=== PATIENT | female | born 1990 | race Hispanic/Latino ===

== ENCOUNTER 2017-08-14 14:29 | Inpatient (IN) | payer OTHER ==
[~2017-08-14] VITALS: Ht 157.5 cm; Wt 89.9 kg
[~2017-08-14 14:29] MED LIST: BUSP15 PO; DICY10 PO; FERR-52 PO; MAGN400C PO; PNV91TAB3 PO; PREN1TAB89 PO; PROM25 PO; TRAM50TA2 PO; TRAZ-147 PO
[2017-08-14] MEDS ORDERED: ONDANSETRON HCL 4 MG/2 ML VIAL ONE ×2 (15:03→23:57)
[2017-08-14 15:04] LABS: BASOPHILS % (AUTO) 1.1 % (0.0-5.0); EOSINOPHILS % (AUTO) 0.2 % (0.0-8.0); HEMATOCRIT 31.7 % (36-48); LYMPHOCYTES % (AUTO) 16.3 % (21.0-51.0); MEAN CORPUSCULAR HEMOGLOBIN 38.4 pg (27.0-33.0); MEAN CORPUSCULAR VOLUME 112.9 fL (79-99); MONOCYTES % (AUTO) 4.4 % (3.0-13.0); NUCLEATED RED BLOOD CELLS 0.1 % (0.0-0.19); PLATELET COUNT (AUTO) 137 K/uL (130-400); RED BLOOD CELL COUNT(AUTO) 2.81 MIL/uL (4.00-5.50); WHITE BLOOD COUNT (AUTO) 11.8 K/uL (4.8-10.8)
[2017-08-14] MEDS ORDERED: SODIUM CHLORIDE 0.9% 1000ML 1,000 ML IV ONE ×2 (15:04→22:17)
[2017-08-14] MEDS ORDERED: DICYCLOMINE HCL 10 MG/ML 2ML AMP IM ONE (15:04)
[2017-08-14] MEDS ORDERED: FAMOTIDINE/PF 20 MG/2 ML VIAL IV ONE (15:05)
[2017-08-14 15:18] LABS: INR 1.35 (0.85-1.15); PARTIAL THROMBOPLASTIN TIME 34.7 SEC (26.3-35.5); PROTHROMBIN TIME 14.1 SEC (9.6-11.6)
[2017-08-14 15:46] LABS: CREATININE 0.5 mg/dL (0.5-1.5); POTASSIUM 3.4 mmol/L (3.5-5.1)
[2017-08-14 15:53] LABS: ALBUMIN 1.8 g/dL (3.5-5.0); BILIRUBIN,TOTAL 7.6 mg/dL (0.2-1.0); TOTAL PROTEIN, SERUM 8.1 g/dL (6.0-8.3)
[2017-08-14] MEDS ORDERED: MORPHINE SULFATE 4 MG/1ML SYG ONE ×2 (16:40→20:55)
[2017-08-14 16:47] LABS: APPEARANCE,URINE SL CLOUDY (CLEAR); BILIRUBIN,URINE LARGE (NEGATIVE); COLOR,URINE ORANGE (YELLOW); GLUCOSE, URINE (UA) NEGATIVE (NEGATIVE); KETONES,URINE 15 mg/dL (NEGATIVE); LEUKOCYTE ESTERASE ,URINE NEGATIVE (NEGATIVE); NITRATE,URINE NEGATIVE (NEGATIVE); OCCULT BLOOD,URINE LARGE (NEGATIVE); PROTEIN,URINE 100 (NEGATIVE); UROBILINOGEN,URINE >=8.0 mg/dL (0.2-1.0)
[2017-08-14] MEDS ORDERED: IOPAMIDOL-370 75 ML VIAL IV ONE (16:48)
[2017-08-14 16:50] LABS: HCG,QUAL RESULT NEGATIVE (NEGATIVE)
[2017-08-14 16:56] LABS: AMPHET/METH SCREEN,URINE NEGATIVE (NEGATIVE); BARBITURATE SCREEN, URINE NEGATIVE (NEGATIVE); BENZODIAZEPINES SCREEN,URINE NEGATIVE (NEGATIVE); CANNABINOID SCREEN,URINE POSITIVE (NEGATIVE); COCAINE SCREEN,URINE NEGATIVE (NEGATIVE); OPIATE SCREEN,URINE NEGATIVE (NEGATIVE); PHENCYCLIDINE SCREEN,URINE NEGATIVE (NEGATIVE)
[2017-08-14 17:05] LABS: BACTERIA,URINE Few /HPF (None Seen); WBC,URINE 0-1 /HPF (0-1)
[2017-08-14 17:06] LABS: SQUAMOUS EPITHELIAL CELL,UR Few /LPF (0-2)
[2017-08-14 17:07] LABS: MUCUS,URINE Moderate LPF (None Seen)
[2017-08-14] MEDS ORDERED: CEFTRIAXONE SODIUM 2 GM VIAL IVP SCH (20:00)
[2017-08-14] MEDS ORDERED: WATER FOR INJECTION,STERILE 20 ML VIAL IJ SCH (20:00)
[2017-08-14] MEDS: SODIUM CHLORIDE 0.9% 1000ML 1,000 ML IV SCH ×2 (20:30→23:14)
[2017-08-14] MEDS ORDERED: WATER FOR INJECTION,STERILE 20 ML VIAL ONE (20:55)
[2017-08-14] MEDS: CEFEPIME HCL 2 GM VIAL IVP SCH (21:00)
[2017-08-14] MEDS: WATER FOR INJECTION,STERILE 20 ML VIAL IJ SCH (21:00)
[2017-08-14] MEDS ORDERED: MORPHINE SULFATE 2 MG/ML 1ML SYG IV PRN (23:15)
[2017-08-14] MEDS ORDERED: ACETAMINOPHEN 325 MG TAB PO PRN (23:15)
[2017-08-14] MEDS ORDERED: HYDRALAZINE HCL 20 MG/ML VIAL IV PRN (23:15)
[2017-08-15] VITALS (7 sets, daily range): BP systolic 90–136; BP diastolic 54–87
[2017-08-15] MEDS ORDERED: MORPHINE SULFATE 4 MG/1ML SYG ONE ×5 (01:35→23:51)
[2017-08-15] MEDS: SODIUM CHLORIDE 0.9% 1000ML 1,000 ML IV SCH ×5 (02:49→23:14)
[2017-08-15 04:28] LABS: BASOPHILS % (AUTO) 2.2 % (0.0-5.0); EOSINOPHILS % (AUTO) 0.3 % (0.0-8.0); HEMATOCRIT 24.5 % (36-48); LYMPHOCYTES % (AUTO) 14.1 % (21.0-51.0); MEAN CORPUSCULAR HEMOGLOBIN 39.7 pg (27.0-33.0); MEAN CORPUSCULAR HGB CONC 35.3 g/dL (32.0-36.0); MEAN CORPUSCULAR VOLUME 112.4 fL (79-99); NEUTROPHILS % (AUTO) 77.4 % (40.0-77.0); PLATELET COUNT (AUTO) 104 K/uL (130-400); RED BLOOD CELL COUNT(AUTO) 2.18 MIL/uL (4.00-5.50); RED CELL DISTRIBUTION WIDTH 23.1 % (11.0-15.5); WHITE BLOOD COUNT (AUTO) 8.2 K/uL (4.8-10.8)
[2017-08-15 04:54] LABS: ALBUMIN 1.7 g/dL (3.5-5.0); BILIRUBIN,TOTAL 7.7 mg/dL (0.2-1.0); CREATININE 0.5 mg/dL (0.5-1.5); POTASSIUM 3.8 mmol/L (3.5-5.1); TOTAL PROTEIN, SERUM 7.9 g/dL (6.0-8.3)
[2017-08-15] MEDS: ONDANSETRON HCL 4 MG/2 ML VIAL IV PRN ×4 (06:08→23:54)
[2017-08-15] MEDS: WATER FOR INJECTION,STERILE 20 ML VIAL IJ SCH ×2 (09:00→20:47)
[2017-08-15] MEDS: CEFEPIME HCL 2 GM VIAL IVP SCH ×2 (10:53→20:47)
[2017-08-15] MEDS: LACTULOSE 20 GM/30 ML UDCUP PO SCH ×2 (10:53→20:47)
[2017-08-15] MEDS: THIAMINE HCL 100 MG/ML 2ML VIAL IM SCH (10:54)
[2017-08-15] MEDS: FAMOTIDINE/PF 20 MG/2 ML VIAL IV SCH ×2 (10:54→20:47)
[2017-08-15] MEDS ORDERED: THIAMINE HCL 100 MG/ML 2ML VIAL IVP SCH (22:15)
[2017-08-15] MEDS: LORAZEPAM 1 MG TABLET PO SCH (23:54)
[2017-08-16] VITALS (15 sets, daily range): BP systolic 103–126; BP diastolic 52–86
[2017-08-16] MEDS: SODIUM CHLORIDE 0.9% 1000ML 1,000 ML IV SCH ×5 (02:30→15:30)
[2017-08-16] MEDS ORDERED: MORPHINE SULFATE 4 MG/1ML SYG ONE ×4 (04:08→20:25)
[2017-08-16] MEDS: ONDANSETRON HCL 4 MG/2 ML VIAL IV PRN ×4 (04:11→22:18)
[2017-08-16 06:00] LABS: HEMATOCRIT 22.7 % (36-48); MEAN CORPUSCULAR HEMOGLOBIN 40.9 pg (27.0-33.0); MEAN CORPUSCULAR HGB CONC 36.1 g/dL (32.0-36.0); MEAN CORPUSCULAR VOLUME 113.3 fL (79-99); NUCLEATED RED BLOOD CELLS 0.2 % (0.0-0.19); PLATELET COUNT (AUTO) 76 K/uL (130-400); RED CELL DISTRIBUTION WIDTH 22.9 % (11.0-15.5); WHITE BLOOD COUNT (AUTO) 5.9 K/uL (4.8-10.8)
[2017-08-16] MEDS: LORAZEPAM 1 MG TABLET PO SCH ×2 (06:07→12:00)
[2017-08-16 06:11] LABS: ALBUMIN 1.6 g/dL (3.5-5.0); BILIRUBIN,TOTAL 7.9 mg/dL (0.2-1.0); CREATININE 0.7 mg/dL (0.5-1.5); POTASSIUM 3.1 mmol/L (3.5-5.1); TOTAL PROTEIN, SERUM 7.4 g/dL (6.0-8.3)
[2017-08-16 06:19] LABS: INR 1.51 (0.85-1.15); PARTIAL THROMBOPLASTIN TIME 38.6 SEC (26.3-35.5); PROTHROMBIN TIME 15.7 SEC (9.6-11.6)
[2017-08-16] MEDS ORDERED: PROPOFOL 1000 MG/100 ML 100 ML IV ONE (07:05)
[2017-08-16] MEDS ORDERED: LIDOCAINE HCL 1% 20 ML VIAL ONE (07:05)
[2017-08-16] MEDS ORDERED: MIDAZOLAM HCL 1 MG/ML 2ML VIAL ONE (07:07)
[2017-08-16] MEDS ORDERED: ONDANSETRON HCL 4 MG/2 ML VIAL ONE (07:41)
[2017-08-16] MEDS: THIAMINE HCL 100 MG TABLET PO SCH (09:00)
[2017-08-16] MEDS: WATER FOR INJECTION,STERILE 20 ML VIAL IJ SCH ×2 (09:00→20:29)
[2017-08-16] MEDS: LACTULOSE 20 GM/30 ML UDCUP PO SCH ×2 (10:09→20:29)
[2017-08-16] MEDS: FAMOTIDINE/PF 20 MG/2 ML VIAL IV SCH (10:14)
[2017-08-16] MEDS: THIAMINE HCL 100 MG/ML 2ML VIAL IM SCH (10:18)
[2017-08-16] MEDS: CEFEPIME HCL 2 GM VIAL IVP SCH ×2 (10:19→20:29)
[2017-08-17 00:34] VITALS: BP 91/60
[2017-08-17 04:00] VITALS: BP 97/63
[2017-08-17] MEDS: SODIUM CHLORIDE 0.9% 1000ML 1,000 ML IV SCH ×4 (04:30→15:14)
[2017-08-17 05:44] VITALS: BP 101/69
[2017-08-17] MEDS: LORAZEPAM 1 MG TABLET PO SCH ×3 (06:00→12:03)
[2017-08-17] MEDS ORDERED: MORPHINE SULFATE 4 MG/1ML SYG ONE (06:02)
[2017-08-17] MEDS: ONDANSETRON HCL 4 MG/2 ML VIAL IV PRN (06:18)
[2017-08-17 07:30] VITALS: BP 97/58
[2017-08-17] MEDS ORDERED: PANTOPRAZOLE SODIUM 40 MG TABLET.DR PO SCH (07:30)
[2017-08-17] MEDS: LACTULOSE 20 GM/30 ML UDCUP PO SCH (09:00)
[2017-08-17] MEDS: LIDOCAINE HCL 2% VISCOUS 15 ML UDCUP PO SCH ×2 (09:00→15:00)
[2017-08-17] MEDS: THIAMINE HCL 100 MG/ML 2ML VIAL IM SCH (09:00)
[2017-08-17] MEDS: CEFEPIME HCL 2 GM VIAL IVP SCH (09:00)
[2017-08-17] MEDS: WATER FOR INJECTION,STERILE 20 ML VIAL IJ SCH (09:01)
[2017-08-17] MEDS: THIAMINE HCL 100 MG TABLET PO SCH (09:01)
[2017-08-17] MEDS ORDERED: MORPHINE SULFATE 4 MG/1ML SYG IV PRN (11:50)
[2017-08-17 12:00] VITALS: BP 97/64
[2017-08-17] MEDS ORDERED: PANT40TA25 PO (14:50)
[2017-08-18] MEDS ORDERED: LIDOCAINE HCL 2% VISCOUS 15 ML UDCUP PO PRN (21:00)
== END 2017-08-17 17:25 | disposition home or self-care (01) | DRG 441 ==
LOC: EDH 14:29 → EDHIP 14:30 → 3AH 08-15 02:10
PROVIDERS: ADMIT Family Medicine; ATTEND Family Medicine
PROC: 06L38CZ Occlusion of Esophageal Vein with Extraluminal Device, Via Natural or Artificial Opening Endoscopic (ICD-10-PCS; principal; 2017-08-16)
DX: K75.9 Inflammatory liver disease, unspecified (principal); I85.01 Esophageal varices with bleeding; K92.0 Hematemesis; D68.9 Coagulation defect, unspecified; E72.20 Disorder of urea cycle metabolism, unspecified; D69.6 Thrombocytopenia, unspecified; K76.6 Portal hypertension; R18.8 Other ascites; R16.0 Hepatomegaly, not elsewhere classified; R16.1 Splenomegaly, not elsewhere classified; K29.20 Alcoholic gastritis without bleeding; K31.89 Other diseases of stomach and duodenum; R74.0 Nonspecific elevation of levels of transaminase and lactic acid dehydrogenase [LDH]; E87.6 Hypokalemia; G40.909 Epilepsy, unspecified, not intractable, without status epilepticus; F10.10 Alcohol abuse, uncomplicated; F12.10 Cannabis abuse, uncomplicated; Z91.19 Patient's noncompliance with other medical treatment and regimen; E66.9 Obesity, unspecified; I86.4 Gastric varices; K27.9 Peptic ulcer, site unspecified, unspecified as acute or chronic, without hemorrhage or perforation; K74.60 Unspecified cirrhosis of liver; Z72.0 Tobacco use; Z88.0 Allergy status to penicillin; Z68.36 Body mass index [BMI] 36.0-36.9, adult; Z82.49 Family history of ischemic heart disease and other diseases of the circulatory system; Z83.3 Family history of diabetes mellitus
CPT/HCPCS: 36415; 49083; 74177; 76700; 76705; 80053; 80305; 81001; 81025; 82140; 83690; 85025; 85027; 85610; 85730; 86677; 86850; 86900; 86901; A4218; G0480; J0500; J0692; J2250; J2270; J2405; J2704; J3411; J3490; J7030; Q9967

== ENCOUNTER 2017-08-20 11:40 | Inpatient (IN) | payer OTHER ==
[~2017-08-20] VITALS: Ht 157.5 cm; Wt 89.2 kg
[~2017-08-20 11:40] MED LIST changes: -BUSP15 PO; +PANT40TA25 PO; -PNV91TAB3 PO; -PREN1TAB89 PO
[2017-08-20 12:58] LABS: BASOPHILS % (AUTO) 1.3 % (0.0-5.0); EOSINOPHILS % (AUTO) 0.1 % (0.0-8.0); HEMATOCRIT 27.8 % (36-48); LYMPHOCYTES % (AUTO) 14.2 % (21.0-51.0); MEAN CORPUSCULAR HEMOGLOBIN 41.1 pg (27.0-33.0); MEAN CORPUSCULAR HGB CONC 34.5 g/dL (32.0-36.0); MONOCYTES % (AUTO) 15.2 % (3.0-13.0); NEUTROPHILS % (AUTO) 69.2 % (40.0-77.0); PLATELET COUNT (AUTO) 165 K/uL (130-400); RED BLOOD CELL COUNT(AUTO) 2.34 MIL/uL (4.00-5.50); RED CELL DISTRIBUTION WIDTH 23.4 % (11.0-15.5); WHITE BLOOD COUNT (AUTO) 8.9 K/uL (4.8-10.8)
[2017-08-20 13:22] LABS: ALBUMIN 1.6 g/dL (3.5-5.0); BILIRUBIN,TOTAL 11.3 mg/dL (0.2-1.0); CREATININE 0.6 mg/dL (0.5-1.5); INR 1.87 (0.85-1.15); PARTIAL THROMBOPLASTIN TIME 42.2 SEC (26.3-35.5); PROTHROMBIN TIME 19.4 SEC (9.6-11.6)
[2017-08-20 13:28] LABS: POTASSIUM 2.8 mmol/L (3.5-5.1)
[2017-08-20] MEDS ORDERED: ONDANSETRON HCL 4 MG/2 ML VIAL ONE ×2 (13:50→17:57)
[2017-08-20] MEDS ORDERED: POTASSIUM BICARB/CIT AC 25 MEQ TABLET.EFF ONE (13:50)
[2017-08-20] MEDS ORDERED: MORPHINE SULFATE 4 MG/1ML SYG ONE (13:51)
[2017-08-20] MEDS ORDERED: GUAIFENESIN-DM 200/20 MG 10 ML PO PRN (17:00)
[2017-08-20] MEDS ORDERED: LACTULOSE 20 GM/30 ML UDCUP PO PRN (17:00)
[2017-08-20] MEDS ORDERED: DiphenhydrAMINE HCL 50 MG/ML VIAL IV PRN (17:00)
[2017-08-20] MEDS ORDERED: POTASSIUM CHLORIDE 20MEQ/100ML 100 ML IV PRN (17:00)
[2017-08-20] MEDS ORDERED: HYDRALAZINE HCL 20 MG/ML VIAL IV PRN (17:00)
[2017-08-20] MEDS ORDERED: POTASSIUM CHLORIDE 10% ELIXIR 20 MEQ/15 ML UDCUP PO PRN (17:00)
[2017-08-20] MEDS ORDERED: LIDOCAINE HCL-MPF 1% 2ML VIAL IVP PRN (17:00)
[2017-08-20] MEDS ORDERED: MORPHINE SULFATE 2 MG/ML 1ML SYG ONE ×2 (17:57→23:02)
[2017-08-20] MEDS: IPRATROPIUM/ALBUTEROL SULFATE 3 ML SOLUTION IH SCH (19:44)
[2017-08-20] MEDS: FAMOTIDINE/PF 20 MG/2 ML VIAL IV SCH (21:00)
[2017-08-20] MEDS ORDERED: FAMOTIDINE/PF 20 MG/2 ML VIAL IV ONE (23:03)
[2017-08-21 01:00] VITALS: BP 105/78
[2017-08-21] MEDS: IPRATROPIUM/ALBUTEROL SULFATE 3 ML SOLUTION IH SCH ×5 (01:12→23:58)
[2017-08-21 03:30] VITALS: BP 97/58
[2017-08-21] MEDS: ONDANSETRON HCL 4 MG/2 ML VIAL IV PRN ×2 (06:46→13:21)
[2017-08-21] MEDS: MORPHINE SULFATE 2 MG/ML 1ML SYG IV PRN ×2 (06:47→13:21)
[2017-08-21 07:00] VITALS: BP 112/71
[2017-08-21] MEDS: FAMOTIDINE/PF 20 MG/2 ML VIAL IV SCH ×2 (11:43→21:15)
[2017-08-21] MEDS: THIAMINE HCL 100 MG/ML 2ML VIAL IM SCH (11:43)
[2017-08-21 12:00] VITALS: BP_SYST 101; BP_SYST 122; BP_DIAS 65; BP_DIAS 75
[2017-08-21 16:00] VITALS: BP 102/62
[2017-08-21] MEDS: POTASSIUM CHLORIDE 20 MEQ ERTAB PO PRN ×2 (19:24→21:15)
[2017-08-21 20:00] VITALS: BP 92/62
[2017-08-21] MEDS ORDERED: SODIUM CHLORIDE 0.9% 250 ML IV ONE (20:02)
[2017-08-22] MEDS: POTASSIUM CHLORIDE 20 MEQ ERTAB PO PRN (01:54)
[2017-08-22 04:10] VITALS: BP 95/66
[2017-08-22] MEDS: MORPHINE SULFATE 2 MG/ML 1ML SYG IV PRN (04:12)
[2017-08-22] MEDS: ONDANSETRON HCL 4 MG/2 ML VIAL IV PRN (04:12)
[2017-08-22 04:34] LABS: CREATININE 0.7 mg/dL (0.5-1.5); MAGNESIUM 0.9 mg/dL (1.80-2.40); POTASSIUM 4.1 mmol/L (3.5-5.1)
[2017-08-22] MEDS: IPRATROPIUM/ALBUTEROL SULFATE 3 ML SOLUTION IH SCH ×2 (06:59→10:27)
[2017-08-22 08:00] VITALS: BP 100/70
[2017-08-22] MEDS ORDERED: MAGNESIUM 2GM PREMIX 50ML 50 ML IV SCH (08:00)
[2017-08-22] MEDS: FAMOTIDINE/PF 20 MG/2 ML VIAL IV SCH (08:45)
[2017-08-22] MEDS: THIAMINE HCL 100 MG/ML 2ML VIAL IM SCH (08:45)
[2017-08-22] MEDS ORDERED: THIA100V3 IJ (10:22)
[2017-08-22] MEDS ORDERED: MAGN400T25 PO (10:22)
[2017-08-22 12:00] VITALS: BP 93/59
[2017-08-22] MEDS ORDERED: FLU VACC QS2017-18 36MOS UP/PF 60 MCG/0.5 ML ML IM NR (13:00)
== END 2017-08-22 14:15 | disposition home or self-care (01) | DRG 433 ==
LOC: EDH 11:40 → EDHIP 11:41 → 3AH 23:10
PROVIDERS: ADMIT Family Medicine; ATTEND Family Medicine
PROC: 3E0234Z Introduction of Serum, Toxoid and Vaccine into Muscle, Percutaneous Approach (ICD-10-PCS; 2017-08-20)
PROC: 0W9G3ZZ Drainage of Peritoneal Cavity, Percutaneous Approach (ICD-10-PCS; principal; 2017-08-21)
DX: K74.60 Unspecified cirrhosis of liver (principal); R18.8 Other ascites; E83.42 Hypomagnesemia; K75.9 Inflammatory liver disease, unspecified; R16.0 Hepatomegaly, not elsewhere classified; R16.1 Splenomegaly, not elsewhere classified; E87.6 Hypokalemia; G40.909 Epilepsy, unspecified, not intractable, without status epilepticus; F10.10 Alcohol abuse, uncomplicated; F12.10 Cannabis abuse, uncomplicated; Z91.19 Patient's noncompliance with other medical treatment and regimen; Z72.0 Tobacco use; Z23 Encounter for immunization
CPT/HCPCS: 36415; 49083; 80048; 80053; 82140; 83735; 84132; 85025; 85610; 85730; 94640; 94664; G0008; J1200; J2270; J2405; J3411; J3475; J3480; J3490; J7030; Q2038

== ENCOUNTER 2017-08-26 08:13 | Inpatient (IN) | payer OTHER ==
[~2017-08-26] VITALS: Ht 157.5 cm; Wt 94.1 kg
[~2017-08-26 08:13] MED LIST changes: -MAGN400C PO; +MAGN400T25 PO; +THIA100V3 IJ
[2017-08-26] MEDS ORDERED: DIATR MEGLU/DIATRIZOATE SODIUM 30 ML BOTTLE PO ONE (08:36)
[2017-08-26 09:40] LABS: BASOPHILS % (AUTO) 0.3 % (0.0-5.0); EOSINOPHILS % (AUTO) 0.1 % (0.0-8.0); HEMATOCRIT 24.9 % (36-48); LYMPHOCYTES % (AUTO) 9.6 % (21.0-51.0); MEAN CORPUSCULAR HEMOGLOBIN 41.7 pg (27.0-33.0); MEAN CORPUSCULAR HGB CONC 35.1 g/dL (32.0-36.0); MEAN CORPUSCULAR VOLUME 118.9 fL (79-99); MONOCYTES % (AUTO) 10.9 % (3.0-13.0); NEUTROPHILS % (AUTO) 79.1 % (40.0-77.0); PLATELET COUNT (AUTO) 229 K/uL (130-400); RED CELL DISTRIBUTION WIDTH 20.7 % (11.0-15.5)
[2017-08-26] MEDS ORDERED: MORPHINE SULFATE 4 MG/1ML SYG ONE ×2 (09:43→13:38)
[2017-08-26] MEDS ORDERED: ONDANSETRON HCL 4 MG/2 ML VIAL ONE (09:43)
[2017-08-26 09:49] LABS: CREATININE 0.7 mg/dL (0.5-1.5); POTASSIUM 4.2 mmol/L (3.5-5.1)
[2017-08-26 09:55] LABS: ALBUMIN 1.3 g/dL (3.5-5.0); BILIRUBIN,TOTAL 11.3 mg/dL (0.2-1.0); TOTAL PROTEIN, SERUM 7.1 g/dL (6.0-8.3)
[2017-08-26 10:01] LABS: INR 1.78 (0.85-1.15); PARTIAL THROMBOPLASTIN TIME 51.7 SEC (26.3-35.5); PROTHROMBIN TIME 18.5 SEC (9.6-11.6)
[2017-08-26 10:28] LABS: APPEARANCE,URINE Turbid (CLEAR); BILIRUBIN,URINE Large (NEGATIVE); COLOR,URINE Dark Yellow (YELLOW); GLUCOSE, URINE (UA) TRACE mg/dL (NEGATIVE); KETONES,URINE Negative (NEGATIVE); LEUKOCYTE ESTERASE ,URINE Small (NEGATIVE); NITRATE,URINE Positive (NEGATIVE); OCCULT BLOOD,URINE Nonhemolyzed Trace (NEGATIVE); PH,URINE 5.5 (5.0-8.0); PROTEIN,URINE POS 1+ (NEGATIVE)
[2017-08-26 10:59] LABS: MUCUS,URINE Moderate LPF (None Seen)
[2017-08-26 11:00] LABS: SQUAMOUS EPITHELIAL CELL,UR 0-2 /LPF (0-2)
[2017-08-26 11:02] LABS: BACTERIA,URINE Few /HPF (None Seen); FINE GRANULAR CASTS,URINE 0-2 /LPF (None Seen); RBC,URINE 0-1 /HPF (0-1); WBC,URINE 0-1 /HPF (0-1)
[2017-08-26] MEDS ORDERED: METRONIDAZOLE 500MG/100ML BAG 100 ML ONE (12:41)
[2017-08-26] MEDS ORDERED: CEFTRIAXONE SODIUM 1 GM ONE (12:42)
[2017-08-26] MEDS ORDERED: HYDRALAZINE HCL 20 MG/ML VIAL IV PRN (15:30)
[2017-08-26 16:00] VITALS: BP 114/78
[2017-08-26] MEDS: ONDANSETRON HCL 4 MG/2 ML VIAL IV PRN (18:27)
[2017-08-26] MEDS: MORPHINE SULFATE 2 MG/ML 1ML SYG IV PRN ×2 (18:27→23:18)
[2017-08-26 19:37] VITALS: BP 108/71
[2017-08-26] MEDS: FUROSEMIDE 10 MG/ML 4ML VIAL IVP SCH (20:58)
[2017-08-26] MEDS: FAMOTIDINE 20MG TAB 20 MG TAB PO SCH (20:58)
[2017-08-26] MEDS: LACTULOSE 20 GM/30 ML UDCUP PO PRN (23:17)
[2017-08-26] MEDS: LEVOFLOXACIN 500 MG/D5W 100 ML 100 ML IV SCH (23:18)
[2017-08-26 23:37] VITALS: BP 104/74
[2017-08-27] VITALS (7 sets, daily range): BP systolic 95–117; BP diastolic 57–77
[2017-08-27] MEDS: ACETAMINOPHEN-CODEINE 300/30MG TAB PO PRN (00:26)
[2017-08-27] MEDS ORDERED: PHYTONADIONE 10 MG/1 ML AMP SQ SCH (01:15)
[2017-08-27] MEDS: ONDANSETRON HCL 4 MG/2 ML VIAL IV PRN ×3 (02:46→20:41)
[2017-08-27] MEDS: MORPHINE SULFATE 2 MG/ML 1ML SYG IV PRN ×3 (05:16→20:42)
[2017-08-27 06:04] LABS: BASOPHILS % (AUTO) 1.4 % (0.0-5.0); HEMATOCRIT 27.9 % (36-48); LYMPHOCYTES % (AUTO) 9.2 % (21.0-51.0); MEAN CORPUSCULAR HEMOGLOBIN 41.1 pg (27.0-33.0); MEAN CORPUSCULAR HGB CONC 34.3 g/dL (32.0-36.0); MEAN CORPUSCULAR VOLUME 119.7 fL (79-99); MONOCYTES % (AUTO) 9.7 % (3.0-13.0); NEUTROPHILS % (AUTO) 79.7 % (40.0-77.0); PLATELET COUNT (AUTO) 215 K/uL (130-400); RED BLOOD CELL COUNT(AUTO) 2.33 MIL/uL (4.00-5.50); RED CELL DISTRIBUTION WIDTH 20.1 % (11.0-15.5); WHITE BLOOD COUNT (AUTO) 12.1 K/uL (4.8-10.8)
[2017-08-27 06:12] LABS: INR 1.88 (0.85-1.15); PARTIAL THROMBOPLASTIN TIME 46.2 SEC (26.3-35.5); PROTHROMBIN TIME 19.5 SEC (9.6-11.6)
[2017-08-27 06:17] LABS: ALBUMIN 1.3 g/dL (3.5-5.0); BILIRUBIN,TOTAL 13.1 mg/dL (0.2-1.0); CREATININE 0.8 mg/dL (0.5-1.5); MAGNESIUM 1.4 mg/dL (1.80-2.40); PHOSPHORUS 2.4 mg/dL (2.5-4.9); POTASSIUM 3.3 mmol/L (3.5-5.1); TOTAL PROTEIN, SERUM 7.6 g/dL (6.0-8.3)
[2017-08-27] MEDS: FUROSEMIDE 10 MG/ML 4ML VIAL IVP SCH ×2 (09:58→20:41)
[2017-08-27] MEDS: FAMOTIDINE 20MG TAB 20 MG TAB PO SCH ×2 (09:58→20:41)
[2017-08-27] MEDS: MAGNESIUM 2GM PREMIX 50ML 50 ML IV SCH (16:26)
[2017-08-27] MEDS: POTASSIUM CHLORIDE 10% ELIXIR 20 MEQ/15 ML UDCUP PO PRN ×2 (16:26→18:19)
[2017-08-27] MEDS: LEVOFLOXACIN 500 MG/D5W 100 ML 100 ML IV SCH (20:41)
[2017-08-27] MEDS: LACTULOSE 20 GM/30 ML UDCUP PO PRN (20:54)
[2017-08-27] MEDS: POTASSIUM CHLORIDE 20 MEQ ERTAB PO PRN (20:54)
[2017-08-27] MEDS: DiphenhydrAMINE HCL 50 MG/ML VIAL IV PRN (22:06)
[2017-08-28] MEDS: MORPHINE SULFATE 2 MG/ML 1ML SYG IV PRN ×3 (01:48→12:01)
[2017-08-28] MEDS: ONDANSETRON HCL 4 MG/2 ML VIAL IV PRN ×2 (03:21→12:01)
[2017-08-28 03:58] VITALS: BP 107/70
[2017-08-28] MEDS: FUROSEMIDE 10 MG/ML 4ML VIAL IVP SCH ×2 (08:19→22:00)
[2017-08-28] MEDS: FAMOTIDINE 20MG TAB 20 MG TAB PO SCH ×2 (08:20→22:01)
[2017-08-28 09:59] VITALS: BP 112/50
[2017-08-28 13:28] VITALS: BP 113/71
[2017-08-28 18:32] VITALS: BP 120/69
[2017-08-28 19:00] VITALS: BP 121/72
[2017-08-28] MEDS: LEVOFLOXACIN 500 MG/D5W 100 ML 100 ML IV SCH (22:01)
[2017-08-28] MEDS: LACTULOSE 20 GM/30 ML UDCUP PO SCH (23:19)
[2017-08-29] VITALS (7 sets, daily range): BP systolic 94–116; BP diastolic 57–76
[2017-08-29] MEDS: ACETAMINOPHEN-CODEINE 300/30MG TAB PO PRN ×2 (02:06→08:55)
[2017-08-29 05:07] LABS: BASOPHILS % (AUTO) 1.1 % (0.0-5.0); HEMATOCRIT 22.7 % (36-48); LYMPHOCYTES % (AUTO) 9.8 % (21.0-51.0); MEAN CORPUSCULAR HEMOGLOBIN 41.1 pg (27.0-33.0); MEAN CORPUSCULAR VOLUME 117.3 fL (79-99); NEUTROPHILS % (AUTO) 80.1 % (40.0-77.0); NUCLEATED RED BLOOD CELLS 0.1 % (0.0-0.19); PLATELET COUNT (AUTO) 214 K/uL (130-400); RED BLOOD CELL COUNT(AUTO) 1.94 MIL/uL (4.00-5.50); RED CELL DISTRIBUTION WIDTH 19.3 % (11.0-15.5); WHITE BLOOD COUNT (AUTO) 13.5 K/uL (4.8-10.8)
[2017-08-29 05:54] LABS: POTASSIUM 2.8 mmol/L (3.5-5.1)
[2017-08-29] MEDS: LIDOCAINE HCL-MPF 1% 2ML VIAL IVP PRN ×3 (06:39→23:26)
[2017-08-29] MEDS: POTASSIUM CHLORIDE 10% ELIXIR 20 MEQ/15 ML UDCUP PO PRN ×3 (06:39→22:27)
[2017-08-29] MEDS: POTASSIUM CHLORIDE 20MEQ/100ML 100 ML IV PRN ×3 (06:40→23:26)
[2017-08-29] MEDS: FAMOTIDINE 20MG TAB 20 MG TAB PO SCH ×2 (08:49→21:17)
[2017-08-29] MEDS: FUROSEMIDE 10 MG/ML 4ML VIAL IVP SCH ×2 (08:50→21:16)
[2017-08-29] MEDS ORDERED: TRAMADOL HCL 50 MG TABLET ONE (11:29)
[2017-08-29] MEDS: MORPHINE SULFATE 2 MG/ML 1ML SYG IV PRN (18:44)
[2017-08-29] MEDS: LEVOFLOXACIN 500 MG/D5W 100 ML 100 ML IV SCH (21:17)
[2017-08-29] MEDS: DiphenhydrAMINE HCL 50 MG/ML VIAL IV PRN (22:26)
[2017-08-30] MEDS: MORPHINE SULFATE 2 MG/ML 1ML SYG IV PRN ×4 (00:51→21:41)
[2017-08-30 04:14] VITALS: BP 100/64
[2017-08-30 04:52] LABS: MEAN CORPUSCULAR HEMOGLOBIN 42.3 pg (27.0-33.0); MEAN CORPUSCULAR HGB CONC 35.6 g/dL (32.0-36.0); MEAN CORPUSCULAR VOLUME 118.8 fL (79-99); PLATELET COUNT (AUTO) 198 K/uL (130-400); RED BLOOD CELL COUNT(AUTO) 1.94 MIL/uL (4.00-5.50); WHITE BLOOD COUNT (AUTO) 15.4 K/uL (4.8-10.8)
[2017-08-30 05:09] LABS: CREATININE 1.1 mg/dL (0.5-1.5); MAGNESIUM 0.9 mg/dL (1.80-2.40); POTASSIUM 3.7 mmol/L (3.5-5.1)
[2017-08-30 05:14] LABS: BAND NEUTROPHILS % (MANUAL) 17 % (0-2); LYMPHOCYTES % (MANUAL) 18 % (22-44); MONOCYTES % (MANUAL) 1 % (2-9); SEGMENTED NEUTROPHILS % 64 % (40-70)
[2017-08-30 05:15] LABS: MAN.DIFF COMMENT-IMPRESSION MANUAL DIFFERENTIAL; PLATELET MORPHOLOGY COMMENT ADEQUATE
[2017-08-30] MEDS: MAGNESIUM 2GM PREMIX 50ML 50 ML IV SCH (06:20)
[2017-08-30 08:15] VITALS: BP 97/63
[2017-08-30] MEDS: LACTULOSE 20 GM/30 ML UDCUP PO SCH ×2 (09:32→23:00)
[2017-08-30] MEDS: FAMOTIDINE 20MG TAB 20 MG TAB PO SCH ×2 (09:32→20:29)
[2017-08-30] MEDS: FUROSEMIDE 10 MG/ML 4ML VIAL IVP SCH ×2 (09:32→20:28)
[2017-08-30] MEDS: POTASSIUM CHLORIDE 20 MEQ ERTAB PO PRN (09:39)
[2017-08-30 11:27] VITALS: BP 97/61
[2017-08-30 15:57] VITALS: BP 91/59
[2017-08-30 19:32] VITALS: BP 99/69
[2017-08-30] MEDS: DiphenhydrAMINE HCL 50 MG/ML VIAL IV PRN (19:36)
[2017-08-30] MEDS: LEVOFLOXACIN 500 MG/D5W 100 ML 100 ML IV SCH (20:29)
[2017-08-30 22:10] LABS: APPEARANCE,URINE Cloudy (CLEAR); BILIRUBIN,URINE Large (NEGATIVE); COLOR,URINE Dark Yellow (YELLOW); GLUCOSE, URINE (UA) Negative (NEGATIVE); KETONES,URINE Negative (NEGATIVE); LEUKOCYTE ESTERASE ,URINE Trace (NEGATIVE); NITRATE,URINE Negative (NEGATIVE); OCCULT BLOOD,URINE Negative (NEGATIVE); PROTEIN,URINE Negative (NEGATIVE); UROBILINOGEN,URINE 0.2 mg/dL (0.2-1.0)
[2017-08-30 22:30] LABS: BACTERIA,URINE None Seen /HPF (None Seen); MUCUS,URINE Rare LPF (None Seen); RBC,URINE None Seen /HPF (0-1); SQUAMOUS EPITHELIAL CELL,UR Few /LPF (0-2); WBC,URINE 0-1 /HPF (0-1)
[2017-08-30 23:44] VITALS: BP 97/64
[2017-08-31] VITALS (13 sets, daily range): BP systolic 89–133; BP diastolic 55–72
[2017-08-31] MEDS: ZOLPIDEM TARTRATE 5 MG TAB PO PRN (02:38)
[2017-08-31] MEDS: ONDANSETRON HCL 4 MG/2 ML VIAL IV PRN (06:02)
[2017-08-31] MEDS: MORPHINE SULFATE 2 MG/ML 1ML SYG IV PRN ×2 (06:02→19:58)
[2017-08-31] MEDS: FAMOTIDINE 20MG TAB 20 MG TAB PO SCH ×2 (08:19→19:58)
[2017-08-31] MEDS: FUROSEMIDE 10 MG/ML 4ML VIAL IVP SCH ×2 (08:20→19:58)
[2017-08-31] MEDS: ACETAMINOPHEN-CODEINE 300/30MG TAB PO PRN ×2 (09:31→17:07)
[2017-08-31] MEDS: DiphenhydrAMINE HCL 50 MG/ML VIAL IV PRN (17:07)
[2017-08-31] MEDS: LEVOFLOXACIN 500 MG/D5W 100 ML 100 ML IV SCH (19:58)
[2017-08-31] MEDS: LACTULOSE 20 GM/30 ML UDCUP PO SCH (23:00)
[2017-09-01] VITALS (7 sets, daily range): BP systolic 96–126; BP diastolic 56–64
[2017-09-01] MEDS: MORPHINE SULFATE 2 MG/ML 1ML SYG IV PRN ×3 (02:28→22:53)
[2017-09-01 05:18] LABS: HEMATOCRIT 23.7 % (36-48); MEAN CORPUSCULAR HEMOGLOBIN 43.7 pg (27.0-33.0); MEAN CORPUSCULAR HGB CONC 37.4 g/dL (32.0-36.0); MEAN CORPUSCULAR VOLUME 116.7 fL (79-99); PLATELET COUNT (AUTO) 174 K/uL (130-400); RED BLOOD CELL COUNT(AUTO) 2.03 MIL/uL (4.00-5.50); WHITE BLOOD COUNT (AUTO) 17.7 K/uL (4.8-10.8)
[2017-09-01 05:29] LABS: INR 2.14 (0.85-1.15); PARTIAL THROMBOPLASTIN TIME 65.5 SEC (26.3-35.5); PROTHROMBIN TIME 22.1 SEC (9.6-11.6)
[2017-09-01 05:30] LABS: BILIRUBIN,TOTAL 11.2 mg/dL (0.2-1.0); CREATININE 1.3 mg/dL (0.5-1.5); MAGNESIUM 0.8 mg/dL (1.80-2.40); POTASSIUM 3.2 mmol/L (3.5-5.1); TOTAL PROTEIN, SERUM 6.3 g/dL (6.0-8.3)
[2017-09-01] MEDS: MAGNESIUM 2GM PREMIX 50ML 50 ML IV SCH (05:43)
[2017-09-01] MEDS: ONDANSETRON HCL 4 MG/2 ML VIAL IV PRN ×3 (06:08→22:42)
[2017-09-01] MEDS: DiphenhydrAMINE HCL 50 MG/ML VIAL IV PRN (06:08)
[2017-09-01] MEDS: ACETAMINOPHEN-CODEINE 300/30MG TAB PO PRN (08:47)
[2017-09-01] MEDS: FUROSEMIDE 10 MG/ML 4ML VIAL IVP SCH ×2 (08:47→21:00)
[2017-09-01] MEDS: FAMOTIDINE 20MG TAB 20 MG TAB PO SCH ×2 (08:47→21:43)
[2017-09-01] MEDS ORDERED: CEFTRIAXONE 1GM/D5W 50ML 50 ML IV SCH (09:45)
[2017-09-01] MEDS: CEFTRIAXONE SODIUM 1 GM IVP SCH (11:40)
[2017-09-01] MEDS: POTASSIUM CHLORIDE 20 MEQ ERTAB PO PRN ×3 (11:41→18:23)
[2017-09-01] MEDS: METRONIDAZOLE 500MG/100ML BAG 100 ML IV SCH ×2 (14:21→21:44)
[2017-09-01] MEDS: LACTULOSE 20 GM/30 ML UDCUP PO SCH (23:00)
[2017-09-02] MEDS: ZOLPIDEM TARTRATE 5 MG TAB PO PRN (02:05)
[2017-09-02 03:59] VITALS: BP 95/58
[2017-09-02] MEDS: METRONIDAZOLE 500MG/100ML BAG 100 ML IV SCH ×3 (05:55→22:56)
[2017-09-02] MEDS: MORPHINE SULFATE 2 MG/ML 1ML SYG IV PRN (06:06)
[2017-09-02] MEDS: ONDANSETRON HCL 4 MG/2 ML VIAL IV PRN ×2 (06:06→22:30)
[2017-09-02 08:00] VITALS: BP 102/63
[2017-09-02 08:07] LABS: HEMATOCRIT 25.2 % (36-48); MEAN CORPUSCULAR HEMOGLOBIN 40.2 pg (27.0-33.0); MEAN CORPUSCULAR HGB CONC 34.3 g/dL (32.0-36.0); PLATELET COUNT (AUTO) 162 K/uL (130-400); RED BLOOD CELL COUNT(AUTO) 2.15 MIL/uL (4.00-5.50); RED CELL DISTRIBUTION WIDTH 17.6 % (11.0-15.5); WHITE BLOOD COUNT (AUTO) 19.8 K/uL (4.8-10.8)
[2017-09-02 08:21] LABS: BILIRUBIN,TOTAL 11.1 mg/dL (0.2-1.0); CREATININE 1.4 mg/dL (0.5-1.5); MAGNESIUM 1.3 mg/dL (1.80-2.40); POTASSIUM 3.9 mmol/L (3.5-5.1); TOTAL PROTEIN, SERUM 6.2 g/dL (6.0-8.3)
[2017-09-02] MEDS: CEFTRIAXONE SODIUM 1 GM IVP SCH (09:35)
[2017-09-02] MEDS: FAMOTIDINE 20MG TAB 20 MG TAB PO SCH ×2 (09:36→22:32)
[2017-09-02] MEDS: FUROSEMIDE 10 MG/ML 4ML VIAL IVP SCH ×2 (09:36→22:31)
[2017-09-02] MEDS: MAGNESIUM 2GM PREMIX 50ML 50 ML IV SCH (09:40)
[2017-09-02 11:00] VITALS: BP 89/55
[2017-09-02 16:00] VITALS: BP 107/59
[2017-09-02] MEDS: TRAMADOL HCL 50 MG TABLET PO PRN ×2 (16:27→22:32)
[2017-09-02 20:00] VITALS: BP 111/70
[2017-09-02] MEDS: DiphenhydrAMINE HCL 50 MG/ML VIAL IV PRN (22:45)
[2017-09-02] MEDS: LACTULOSE 20 GM/30 ML UDCUP PO SCH (23:00)
[2017-09-03] VITALS: BP 111/62
[2017-09-03] MEDS: ZOLPIDEM TARTRATE 5 MG TAB PO PRN (01:33)
[2017-09-03 04:00] VITALS: BP 110/64
[2017-09-03] MEDS: METRONIDAZOLE 500MG/100ML BAG 100 ML IV SCH ×3 (06:45→22:04)
[2017-09-03] MEDS: ACETAMINOPHEN-CODEINE 300/30MG TAB PO PRN ×3 (06:45→22:48)
[2017-09-03 07:30] VITALS: BP 94/66
[2017-09-03 08:25] LABS: MEAN CORPUSCULAR HEMOGLOBIN 41.5 pg (27.0-33.0); MEAN CORPUSCULAR HGB CONC 35.2 g/dL (32.0-36.0); MEAN CORPUSCULAR VOLUME 117.6 fL (79-99); NUCLEATED RED BLOOD CELLS 0.1 % (0.0-0.19); PLATELET COUNT (AUTO) 156 K/uL (130-400); WHITE BLOOD COUNT (AUTO) 18.6 K/uL (4.8-10.8)
[2017-09-03 08:45] LABS: ALBUMIN 1.1 g/dL (3.5-5.0); BILIRUBIN,TOTAL 12.4 mg/dL (0.2-1.0); CREATININE 1.5 mg/dL (0.5-1.5); MAGNESIUM 1.4 mg/dL (1.80-2.40); POTASSIUM 3.9 mmol/L (3.5-5.1)
[2017-09-03] MEDS: CEFTRIAXONE SODIUM 1 GM IVP SCH (09:36)
[2017-09-03] MEDS: FUROSEMIDE 10 MG/ML 4ML VIAL IVP SCH ×2 (09:37→20:51)
[2017-09-03] MEDS: FAMOTIDINE 20MG TAB 20 MG TAB PO SCH ×2 (09:37→20:52)
[2017-09-03] MEDS: TRAMADOL HCL 50 MG TABLET PO PRN (09:47)
[2017-09-03 09:51] LABS: BAND NEUTROPHILS % (MANUAL) 4 % (0-2); LYMPHOCYTES % (MANUAL) 3 % (22-44); MAN.DIFF COMMENT-IMPRESSION MANUAL DIFFERENTIAL; MONOCYTES % (MANUAL) 3 % (2-9); SEGMENTED NEUTROPHILS % 90 % (40-70)
[2017-09-03 09:53] LABS: PLATELET MORPHOLOGY COMMENT LARGE PLTS PRESENT
[2017-09-03 11:00] VITALS: BP 99/65
[2017-09-03] MEDS: ONDANSETRON HCL 4 MG/2 ML VIAL IV PRN ×2 (15:46→22:47)
[2017-09-03 16:00] VITALS: BP 96/65
[2017-09-03] MEDS: MAGNESIUM 2GM PREMIX 50ML 50 ML IV SCH (19:05)
[2017-09-03 20:20] VITALS: BP 105/69
[2017-09-03] MEDS: LACTULOSE 20 GM/30 ML UDCUP PO SCH (22:41)
[2017-09-04 00:17] VITALS: BP 104/67
[2017-09-04] MEDS: TRAMADOL HCL 50 MG TABLET PO PRN ×2 (02:36→09:26)
[2017-09-04 04:15] VITALS: BP 105/70
[2017-09-04 04:55] LABS: HEMATOCRIT 27.1 % (36-48); MEAN CORPUSCULAR HEMOGLOBIN 40.6 pg (27.0-33.0); MEAN CORPUSCULAR HGB CONC 34.6 g/dL (32.0-36.0); MEAN CORPUSCULAR VOLUME 117.5 fL (79-99); PLATELET COUNT (AUTO) 151 K/uL (130-400); RED BLOOD CELL COUNT(AUTO) 2.31 MIL/uL (4.00-5.50); WHITE BLOOD COUNT (AUTO) 20.8 K/uL (4.8-10.8)
[2017-09-04] MEDS: METRONIDAZOLE 500MG/100ML BAG 100 ML IV SCH ×3 (05:57→21:40)
[2017-09-04] MEDS: ACETAMINOPHEN-CODEINE 300/30MG TAB PO PRN ×3 (06:09→22:14)
[2017-09-04] MEDS: ONDANSETRON HCL 4 MG/2 ML VIAL IV PRN ×3 (06:09→22:14)
[2017-09-04 08:22] VITALS: BP 91/54
[2017-09-04] MEDS: CEFTRIAXONE SODIUM 1 GM IVP SCH (09:19)
[2017-09-04] MEDS: FUROSEMIDE 10 MG/ML 4ML VIAL IVP SCH ×2 (09:20→20:53)
[2017-09-04] MEDS: FAMOTIDINE 20MG TAB 20 MG TAB PO SCH ×2 (09:20→20:53)
[2017-09-04 12:00] VITALS: BP 99/67
[2017-09-04 16:00] VITALS: BP 98/63
[2017-09-04 20:00] VITALS: BP 97/69
[2017-09-05] VITALS: BP 108/66
[2017-09-05] MEDS: ZOLPIDEM TARTRATE 5 MG TAB PO PRN (01:36)
[2017-09-05 03:23] LABS: HEMATOCRIT 25.1 % (36-48); MEAN CORPUSCULAR HEMOGLOBIN 40.6 pg (27.0-33.0); MEAN CORPUSCULAR HGB CONC 34.5 g/dL (32.0-36.0); MEAN CORPUSCULAR VOLUME 117.5 fL (79-99); PLATELET COUNT (AUTO) 105 K/uL (130-400); RED BLOOD CELL COUNT(AUTO) 2.14 MIL/uL (4.00-5.50); RED CELL DISTRIBUTION WIDTH 16.9 % (11.0-15.5); WHITE BLOOD COUNT (AUTO) 19.5 K/uL (4.8-10.8)
[2017-09-05 03:35] LABS: CREATININE 1.9 mg/dL (0.5-1.5); MAGNESIUM 1.4 mg/dL (1.80-2.40); POTASSIUM 3.4 mmol/L (3.5-5.1)
[2017-09-05 04:00] VITALS: BP 109/69
[2017-09-05] MEDS: MAGNESIUM 2GM PREMIX 50ML 50 ML IV SCH (04:27)
[2017-09-05] MEDS: POTASSIUM CHLORIDE 20 MEQ ERTAB PO PRN ×2 (04:27→09:17)
[2017-09-05] MEDS: LACTULOSE 20 GM/30 ML UDCUP PO SCH ×2 (04:28→22:55)
[2017-09-05] MEDS: TRAMADOL HCL 50 MG TABLET PO PRN ×3 (05:17→23:41)
[2017-09-05] MEDS: METRONIDAZOLE 500MG/100ML BAG 100 ML IV SCH ×3 (06:03→22:55)
[2017-09-05 08:00] VITALS: BP 102/64
[2017-09-05] MEDS: ACETAMINOPHEN-CODEINE 300/30MG TAB PO PRN (09:17)
[2017-09-05] MEDS: CEFTRIAXONE SODIUM 1 GM IVP SCH (09:18)
[2017-09-05] MEDS: FAMOTIDINE 20MG TAB 20 MG TAB PO SCH ×2 (09:18→22:55)
[2017-09-05] MEDS: FUROSEMIDE 10 MG/ML 4ML VIAL IVP SCH ×2 (09:18→22:55)
[2017-09-05 12:00] VITALS: BP 104/65
[2017-09-05 15:51] VITALS: BP 106/69
[2017-09-05] MEDS: MAGNESIUM CHLORIDE 70 MG TABLET.SA PO SCH (17:58)
[2017-09-05 20:00] VITALS: BP 114/68
[2017-09-06] VITALS (7 sets, daily range): BP systolic 93–109; BP diastolic 59–69
[2017-09-06 05:38] LABS: HEMATOCRIT 27.6 % (36-48); MEAN CORPUSCULAR HEMOGLOBIN 41.8 pg (27.0-33.0); MEAN CORPUSCULAR HGB CONC 35.7 g/dL (32.0-36.0); MEAN CORPUSCULAR VOLUME 117.3 fL (79-99); PLATELET COUNT (AUTO) 148 K/uL (130-400); RED BLOOD CELL COUNT(AUTO) 2.35 MIL/uL (4.00-5.50); RED CELL DISTRIBUTION WIDTH 17.5 % (11.0-15.5); WHITE BLOOD COUNT (AUTO) 22.2 K/uL (4.8-10.8)
[2017-09-06 05:45] LABS: MAGNESIUM 1.6 mg/dL (1.80-2.40); POTASSIUM 3.7 mmol/L (3.5-5.1)
[2017-09-06 05:48] LABS: INR 2.02 (0.85-1.15); PROTHROMBIN TIME 20.9 SEC (9.6-11.6)
[2017-09-06] MEDS: METRONIDAZOLE 500MG/100ML BAG 100 ML IV SCH ×3 (05:56→21:41)
[2017-09-06] MEDS ORDERED: ACETAMINOPHEN-CODEINE 300/30MG TAB ONE (06:29)
[2017-09-06] MEDS: MAGNESIUM 2GM PREMIX 50ML 50 ML IV SCH (07:40)
[2017-09-06] MEDS: FUROSEMIDE 10 MG/ML 4ML VIAL IVP SCH ×2 (08:49→21:41)
[2017-09-06] MEDS: FAMOTIDINE 20MG TAB 20 MG TAB PO SCH ×2 (08:49→21:41)
[2017-09-06] MEDS: LACTULOSE 20 GM/30 ML UDCUP PO SCH ×2 (08:49→21:41)
[2017-09-06] MEDS: TRAMADOL HCL 50 MG TABLET PO PRN ×2 (11:04→19:03)
[2017-09-06] MEDS: MAGNESIUM CHLORIDE 70 MG TABLET.SA PO SCH (11:04)
[2017-09-06] MEDS: CEFTRIAXONE SODIUM 1 GM IVP SCH (11:04)
[2017-09-06] MEDS: ONDANSETRON HCL 4 MG/2 ML VIAL IV PRN (14:51)
[2017-09-06] MEDS: ZOLPIDEM TARTRATE 5 MG TAB PO PRN (21:41)
[2017-09-06] MEDS: ONDANSETRON HCL MDV 20ML 2 MG/ML VIAL IV PRN (22:30)
[2017-09-07] MEDS: TRAMADOL HCL 50 MG TABLET PO PRN ×4 (03:22→22:00)
[2017-09-07 05:34] LABS: HEMATOCRIT 24.2 % (36-48); MEAN CORPUSCULAR HEMOGLOBIN 40.6 pg (27.0-33.0); MEAN CORPUSCULAR VOLUME 116.2 fL (79-99); PLATELET COUNT (AUTO) 141 K/uL (130-400); RED BLOOD CELL COUNT(AUTO) 2.08 MIL/uL (4.00-5.50); RED CELL DISTRIBUTION WIDTH 16.9 % (11.0-15.5); WHITE BLOOD COUNT (AUTO) 19.5 K/uL (4.8-10.8)
[2017-09-07 05:37] LABS: MAGNESIUM 1.8 mg/dL (1.80-2.40); POTASSIUM 3.5 mmol/L (3.5-5.1)
[2017-09-07] MEDS: METRONIDAZOLE 500MG/100ML BAG 100 ML IV SCH ×3 (06:41→21:58)
[2017-09-07 08:16] VITALS: BP 101/57
[2017-09-07] MEDS: LACTULOSE 20 GM/30 ML UDCUP PO SCH ×2 (08:19→22:01)
[2017-09-07] MEDS: MAGNESIUM CHLORIDE 70 MG TABLET.SA PO SCH (08:19)
[2017-09-07] MEDS: ONDANSETRON HCL MDV 20ML 2 MG/ML VIAL IV PRN ×2 (08:19→21:59)
[2017-09-07] MEDS: FUROSEMIDE 10 MG/ML 4ML VIAL IVP SCH ×2 (08:20→22:01)
[2017-09-07] MEDS: FAMOTIDINE 20MG TAB 20 MG TAB PO SCH ×2 (08:20→22:00)
[2017-09-07 12:15] VITALS: BP 103/64
[2017-09-07 15:35] VITALS: BP 99/56
[2017-09-07 20:00] VITALS: BP 106/70
[2017-09-07] MEDS: ZOLPIDEM TARTRATE 5 MG TAB PO PRN (21:59)
[2017-09-07] MEDS: MIDODRINE HCL 5 MG TABLET PO SCH (22:00)
[2017-09-08] VITALS (8 sets, daily range): BP systolic 96–115; BP diastolic 61–73
[2017-09-08 06:15] LABS: HEMATOCRIT 27.2 % (36-48); MEAN CORPUSCULAR HEMOGLOBIN 41.4 pg (27.0-33.0); MEAN CORPUSCULAR HGB CONC 35.5 g/dL (32.0-36.0); MEAN CORPUSCULAR VOLUME 116.6 fL (79-99); PLATELET COUNT (AUTO) 156 K/uL (130-400); RED BLOOD CELL COUNT(AUTO) 2.33 MIL/uL (4.00-5.50); RED CELL DISTRIBUTION WIDTH 17.4 % (11.0-15.5); WHITE BLOOD COUNT (AUTO) 21.6 K/uL (4.8-10.8)
[2017-09-08 06:24] LABS: CREATININE 2.2 mg/dL (0.5-1.5); POTASSIUM 3.5 mmol/L (3.5-5.1)
[2017-09-08] MEDS: METRONIDAZOLE 500MG/100ML BAG 100 ML IV SCH ×3 (06:43→21:24)
[2017-09-08 06:59] LABS: % IRON SATURATION 121.2 % (22-44)
[2017-09-08] MEDS: MAGNESIUM CHLORIDE 70 MG TABLET.SA PO SCH (09:00)
[2017-09-08] MEDS: MIDODRINE HCL 5 MG TABLET PO SCH ×3 (09:00→21:13)
[2017-09-08] MEDS: FOLIC ACID 1 MG TABLET PO SCH (09:00)
[2017-09-08] MEDS: THIAMINE HCL 100 MG TABLET PO SCH (09:00)
[2017-09-08] MEDS: LACTULOSE 20 GM/30 ML UDCUP PO SCH ×2 (09:00→21:12)
[2017-09-08] MEDS: FUROSEMIDE 10 MG/ML 4ML VIAL IVP SCH ×2 (09:00→21:12)
[2017-09-08] MEDS: FAMOTIDINE 20MG TAB 20 MG TAB PO SCH ×2 (09:00→21:13)
[2017-09-08] MEDS: CEFTRIAXONE SODIUM 1 GM IVP SCH (18:43)
[2017-09-08] MEDS: ZOLPIDEM TARTRATE 5 MG TAB PO PRN (21:13)
[2017-09-08] MEDS: TRAMADOL HCL 50 MG TABLET PO PRN (21:13)
[2017-09-08] MEDS: POTASSIUM CHLORIDE 10% ELIXIR 20 MEQ/15 ML UDCUP PO PRN (23:38)
[2017-09-09 04:30] VITALS: BP 96/74
[2017-09-09] MEDS: METRONIDAZOLE 500MG/100ML BAG 100 ML IV SCH ×3 (05:16→21:28)
[2017-09-09 07:15] LABS: HEMATOCRIT 28.6 % (36-48); MEAN CORPUSCULAR HEMOGLOBIN 42.1 pg (27.0-33.0); MEAN CORPUSCULAR HGB CONC 35.6 g/dL (32.0-36.0); MEAN CORPUSCULAR VOLUME 118.1 fL (79-99); PLATELET COUNT (AUTO) 175 K/uL (130-400); RED BLOOD CELL COUNT(AUTO) 2.42 MIL/uL (4.00-5.50); RED CELL DISTRIBUTION WIDTH 17.2 % (11.0-15.5); WHITE BLOOD COUNT (AUTO) 22.1 K/uL (4.8-10.8)
[2017-09-09 07:27] LABS: CREATININE 2.3 mg/dL (0.5-1.5); POTASSIUM 3.8 mmol/L (3.5-5.1)
[2017-09-09 08:00] VITALS: BP 97/55
[2017-09-09] MEDS: FAMOTIDINE 20MG TAB 20 MG TAB PO SCH ×2 (10:54→21:14)
[2017-09-09] MEDS: THIAMINE HCL 100 MG TABLET PO SCH (10:54)
[2017-09-09] MEDS: FOLIC ACID 1 MG TABLET PO SCH (10:54)
[2017-09-09] MEDS: MIDODRINE HCL 5 MG TABLET PO SCH ×3 (10:54→21:14)
[2017-09-09] MEDS: CEFTRIAXONE SODIUM 1 GM IVP SCH ×2 (10:55→11:07)
[2017-09-09] MEDS: FUROSEMIDE 10 MG/ML 4ML VIAL IVP SCH ×2 (10:55→21:14)
[2017-09-09] MEDS: LACTULOSE 20 GM/30 ML UDCUP PO SCH ×3 (10:56→21:14)
[2017-09-09] MEDS: RIFAXIMIN 200 MG TABLET PO SCH ×2 (11:05→21:27)
[2017-09-09] MEDS: MAGNESIUM CHLORIDE 70 MG TABLET.SA PO SCH (11:06)
[2017-09-09 12:07] VITALS: BP 100/61
[2017-09-09 16:43] VITALS: BP 110/78
[2017-09-09 20:00] VITALS: BP 107/72
[2017-09-09] MEDS: ONDANSETRON HCL MDV 20ML 2 MG/ML VIAL IV PRN (21:27)
[2017-09-09 23:57] VITALS: BP 117/51
[2017-09-10 04:00] VITALS: BP 102/62
[2017-09-10] MEDS: METRONIDAZOLE 500MG/100ML BAG 100 ML IV SCH ×3 (05:20→22:01)
[2017-09-10 06:49] LABS: MEAN CORPUSCULAR HEMOGLOBIN 42.7 pg (27.0-33.0); MEAN CORPUSCULAR HGB CONC 36.4 g/dL (32.0-36.0); MEAN CORPUSCULAR VOLUME 117.3 fL (79-99); PLATELET COUNT (AUTO) 193 K/uL (130-400)
[2017-09-10 07:35] LABS: CREATININE 2.5 mg/dL (0.5-1.5); POTASSIUM 3.2 mmol/L (3.5-5.1)
[2017-09-10] MEDS: CEFTRIAXONE SODIUM 1 GM IVP SCH (10:19)
[2017-09-10] MEDS: MIDODRINE HCL 5 MG TABLET PO SCH ×3 (10:19→20:15)
[2017-09-10] MEDS: FUROSEMIDE 10 MG/ML 4ML VIAL IVP SCH ×2 (10:20→20:16)
[2017-09-10] MEDS: LACTULOSE 20 GM/30 ML UDCUP PO SCH ×3 (10:20→20:15)
[2017-09-10] MEDS: MAGNESIUM CHLORIDE 70 MG TABLET.SA PO SCH (10:20)
[2017-09-10] MEDS: FOLIC ACID 1 MG TABLET PO SCH (10:20)
[2017-09-10] MEDS: THIAMINE HCL 100 MG TABLET PO SCH (10:20)
[2017-09-10] MEDS: FAMOTIDINE 20MG TAB 20 MG TAB PO SCH ×2 (10:20→20:16)
[2017-09-10 11:59] VITALS: BP 101/63
[2017-09-10] MEDS: LIDOCAINE HCL-MPF 1% 2ML VIAL IVP PRN (12:20)
[2017-09-10] MEDS: POTASSIUM CHLORIDE 20MEQ/100ML 100 ML IV PRN (12:20)
[2017-09-10] MEDS: RIFAXIMIN 200 MG TABLET PO SCH ×2 (12:24→20:15)
[2017-09-10 17:49] VITALS: BP 107/70
[2017-09-10 20:00] VITALS: BP 102/74
[2017-09-10] MEDS: TRAMADOL HCL 50 MG TABLET PO PRN (20:16)
[2017-09-10 23:56] VITALS: BP 106/67
[2017-09-11 04:00] VITALS: BP 93/61
[2017-09-11 04:37] LABS: HEMATOCRIT 26.1 % (36-48); MEAN CORPUSCULAR HEMOGLOBIN 41.1 pg (27.0-33.0); MEAN CORPUSCULAR HGB CONC 35.1 g/dL (32.0-36.0); MEAN CORPUSCULAR VOLUME 117.1 fL (79-99); PLATELET COUNT (AUTO) 178 K/uL (130-400); RED BLOOD CELL COUNT(AUTO) 2.23 MIL/uL (4.00-5.50); RED CELL DISTRIBUTION WIDTH 16.6 % (11.0-15.5)
[2017-09-11 04:49] LABS: CREATININE 2.6 mg/dL (0.5-1.5); MAGNESIUM 1.5 mg/dL (1.80-2.40)
[2017-09-11] MEDS: POTASSIUM CHLORIDE 20 MEQ ERTAB PO PRN ×3 (05:12→12:33)
[2017-09-11] MEDS: METRONIDAZOLE 500MG/100ML BAG 100 ML IV SCH ×3 (05:12→21:25)
[2017-09-11 08:29] VITALS: BP 85/52
[2017-09-11] MEDS: MIDODRINE HCL 5 MG TABLET PO SCH ×3 (10:05→21:26)
[2017-09-11] MEDS: MAGNESIUM CHLORIDE 70 MG TABLET.SA PO SCH (10:05)
[2017-09-11] MEDS: FOLIC ACID 1 MG TABLET PO SCH (10:05)
[2017-09-11] MEDS: THIAMINE HCL 100 MG TABLET PO SCH (10:05)
[2017-09-11] MEDS: FAMOTIDINE 20MG TAB 20 MG TAB PO SCH ×2 (10:06→21:26)
[2017-09-11] MEDS: FUROSEMIDE 10 MG/ML 4ML VIAL IVP SCH ×2 (10:06→21:27)
[2017-09-11] MEDS: CEFTRIAXONE SODIUM 1 GM IVP SCH (10:07)
[2017-09-11] MEDS: LACTULOSE 20 GM/30 ML UDCUP PO SCH ×3 (10:07→21:26)
[2017-09-11] MEDS: TRAMADOL HCL 50 MG TABLET PO PRN (10:09)
[2017-09-11 11:54] VITALS: BP 100/60
[2017-09-11] MEDS: RIFAXIMIN 550 MG TABLET PO SCH ×2 (12:23→21:26)
[2017-09-11 17:42] VITALS: BP 101/61
[2017-09-11] MEDS ORDERED: MAGNESIUM SULFATE 1 GM in SODIUM CHLORIDE 0.9% 50 ML IV SCH (17:45)
[2017-09-11] MEDS ORDERED: POTASSIUM CHLORIDE 20MEQ/100ML 100 ML IV SCH (17:45)
[2017-09-11 20:00] VITALS: BP 113/69
[2017-09-11] MEDS: MAGNESIUM 2GM PREMIX 50ML 50 ML IV SCH (22:33)
[2017-09-11 23:39] VITALS: BP 110/61
[2017-09-12 04:00] VITALS: BP 98/69
[2017-09-12] MEDS: METRONIDAZOLE 500MG/100ML BAG 100 ML IV SCH ×3 (04:50→22:42)
[2017-09-12 06:05] LABS: CREATININE 2.7 mg/dL (0.5-1.5); MAGNESIUM 2.2 mg/dL (1.80-2.40); POTASSIUM 3.7 mmol/L (3.5-5.1)
[2017-09-12 06:12] LABS: HEMATOCRIT 29.4 % (36-48); MEAN CORPUSCULAR HEMOGLOBIN 42.4 pg (27.0-33.0); MEAN CORPUSCULAR HGB CONC 34.3 g/dL (32.0-36.0); MEAN CORPUSCULAR VOLUME 123.5 fL (79-99); PLATELET COUNT (AUTO) 131 K/uL (130-400); RED BLOOD CELL COUNT(AUTO) 2.38 MIL/uL (4.00-5.50); WHITE BLOOD COUNT (AUTO) 25.4 K/uL (4.8-10.8)
[2017-09-12 07:00] VITALS: BP 107/55
[2017-09-12 07:42] LABS: LYMPHOCYTES % (MANUAL) 2 % (22-44); MAN.DIFF COMMENT-IMPRESSION MANUAL DIFFERENTIAL; MONOCYTES % (MANUAL) 1 % (2-9); PLATELET MORPHOLOGY COMMENT ADEQUATE; SEGMENTED NEUTROPHILS % 97 % (40-70)
[2017-09-12] MEDS: FOLIC ACID 1 MG TABLET PO SCH (10:30)
[2017-09-12] MEDS: TRAMADOL HCL 50 MG TABLET PO PRN ×2 (10:30→21:20)
[2017-09-12] MEDS: FUROSEMIDE 10 MG/ML 4ML VIAL IVP SCH ×2 (10:30→20:56)
[2017-09-12] MEDS: ONDANSETRON HCL MDV 20ML 2 MG/ML VIAL IV PRN (10:30)
[2017-09-12] MEDS: LACTULOSE 20 GM/30 ML UDCUP PO SCH ×3 (10:31→20:56)
[2017-09-12] MEDS: FAMOTIDINE 20MG TAB 20 MG TAB PO SCH ×2 (10:31→20:57)
[2017-09-12] MEDS: THIAMINE HCL 100 MG TABLET PO SCH (10:32)
[2017-09-12] MEDS: MIDODRINE HCL 5 MG TABLET PO SCH ×3 (10:32→20:57)
[2017-09-12] MEDS: CEFTRIAXONE SODIUM 1 GM IVP SCH (10:32)
[2017-09-12] MEDS: MAGNESIUM CHLORIDE 70 MG TABLET.SA PO SCH (10:32)
[2017-09-12] MEDS: RIFAXIMIN 550 MG TABLET PO SCH ×2 (10:32→20:56)
[2017-09-12 11:56] VITALS: BP 108/58
[2017-09-12] MEDS ORDERED: ALBUMIN (HUMAN) 25% 200 ML IV ONE (15:15)
[2017-09-12 16:00] VITALS: BP 93/63
[2017-09-12] MEDS: ALBUMIN (HUMAN) 25% 100 ML IV SCH ×2 (16:33→22:45)
[2017-09-12 16:56] LABS: APPEARANCE BODY FLUID CLEAR (CLEAR); COLOR,BODY FLUID YELLOW (LT YELLOW); SPECIMENTYPE,BODY FLUID ASCITES; TOTAL VOLUME,BODY FLUID 1000 mL
[2017-09-12 16:57] LABS: BODY FLUID RBC 46 /cu. mm.; BODY FLUID WBC 10 /cu. mm.
[2017-09-12 18:00] LABS: BF LYMPHOCYTE 11 %; BF MESOTHELIAL 1 %
[2017-09-12 19:19] VITALS: BP 93/57
[2017-09-12 23:23] VITALS: BP 92/56
[2017-09-13 03:32] VITALS: BP 100/58
[2017-09-13] MEDS: TRAMADOL HCL 50 MG TABLET PO PRN ×3 (05:04→22:36)
[2017-09-13] MEDS: ALBUMIN (HUMAN) 25% 100 ML IV SCH ×3 (05:24→22:39)
[2017-09-13 05:31] LABS: HEMATOCRIT 28.7 % (36-48); MEAN CORPUSCULAR HEMOGLOBIN 40.7 pg (27.0-33.0); MEAN CORPUSCULAR VOLUME 119.7 fL (79-99); PLATELET COUNT (AUTO) 135 K/uL (130-400); RED BLOOD CELL COUNT(AUTO) 2.39 MIL/uL (4.00-5.50); RED CELL DISTRIBUTION WIDTH 16.8 % (11.0-15.5); WHITE BLOOD COUNT (AUTO) 21.2 K/uL (4.8-10.8)
[2017-09-13] MEDS: METRONIDAZOLE 500MG/100ML BAG 100 ML IV SCH ×3 (05:34→22:38)
[2017-09-13 05:35] LABS: BAND NEUTROPHILS % (MANUAL) 3 % (0-2); BASOPHILS % (MANUAL) 1 % (0-2); LYMPHOCYTES % (MANUAL) 10 % (22-44); MAN.DIFF COMMENT-IMPRESSION MANUAL DIF; MONOCYTES % (MANUAL) 5 % (2-9); PLATELET MORPHOLOGY COMMENT SLIGHTLY DECREASED; SEGMENTED NEUTROPHILS % 81 % (40-70)
[2017-09-13 05:42] LABS: CREATININE 2.7 mg/dL (0.5-1.5); POTASSIUM 3.1 mmol/L (3.5-5.1)
[2017-09-13] MEDS: POTASSIUM CHLORIDE 20 MEQ ERTAB PO PRN (05:53)
[2017-09-13 07:00] VITALS: BP 94/54
[2017-09-13] MEDS: FAMOTIDINE 20MG TAB 20 MG TAB PO SCH ×2 (10:45→22:37)
[2017-09-13] MEDS: THIAMINE HCL 100 MG TABLET PO SCH (10:45)
[2017-09-13] MEDS: FOLIC ACID/VITAMIN B COMP W-C 1 MG CAPSULE PO SCH (10:45)
[2017-09-13] MEDS: CEFTRIAXONE SODIUM 1 GM IVP SCH (10:45)
[2017-09-13] MEDS: FOLIC ACID 1 MG TABLET PO SCH (10:45)
[2017-09-13] MEDS: LACTULOSE 20 GM/30 ML UDCUP PO SCH ×3 (10:45→22:38)
[2017-09-13] MEDS: MAGNESIUM CHLORIDE 70 MG TABLET.SA PO SCH (10:46)
[2017-09-13] MEDS: FUROSEMIDE 10 MG/ML 4ML VIAL IVP SCH ×2 (10:46→22:37)
[2017-09-13] MEDS: MIDODRINE HCL 5 MG TABLET PO SCH ×3 (10:46→22:37)
[2017-09-13] MEDS: RIFAXIMIN 550 MG TABLET PO SCH ×2 (10:46→22:37)
[2017-09-13 11:00] VITALS: BP 97/60
[2017-09-13] MEDS ORDERED: POTASSIUM CHLORIDE 20 MEQ ERTAB PO SCH (11:45)
[2017-09-13 15:00] VITALS: BP 94/52
[2017-09-13 20:00] VITALS: BP 100/60
[2017-09-13] MEDS: ONDANSETRON HCL MDV 20ML 2 MG/ML VIAL IV PRN (22:30)
[2017-09-13 23:23] VITALS: BP 98/66
[2017-09-14 03:49] VITALS: BP 94/57
[2017-09-14 06:26] LABS: HEMATOCRIT 24.5 % (36-48); MEAN CORPUSCULAR HEMOGLOBIN 42.5 pg (27.0-33.0); MEAN CORPUSCULAR HGB CONC 36.3 g/dL (32.0-36.0); MEAN CORPUSCULAR VOLUME 117.1 fL (79-99); PLATELET COUNT (AUTO) 127 K/uL (130-400); RED BLOOD CELL COUNT(AUTO) 2.09 MIL/uL (4.00-5.50); RED CELL DISTRIBUTION WIDTH 16.2 % (11.0-15.5); WHITE BLOOD COUNT (AUTO) 18.6 K/uL (4.8-10.8)
[2017-09-14] MEDS: ONDANSETRON HCL MDV 20ML 2 MG/ML VIAL IV PRN ×2 (06:31→21:55)
[2017-09-14] MEDS: METRONIDAZOLE 500MG/100ML BAG 100 ML IV SCH ×3 (06:31→21:54)
[2017-09-14] MEDS: ALBUMIN (HUMAN) 25% 100 ML IV SCH (06:31)
[2017-09-14] MEDS: TRAMADOL HCL 50 MG TABLET PO PRN ×3 (06:31→21:54)
[2017-09-14 06:33] LABS: CREATININE 2.2 mg/dL (0.5-1.5); MAGNESIUM 1.8 mg/dL (1.80-2.40); POTASSIUM 3.1 mmol/L (3.5-5.1)
[2017-09-14 07:00] VITALS: BP 102/60
[2017-09-14 07:54] LABS: BAND NEUTROPHILS % (MANUAL) 1 % (0-2); LYMPHOCYTES % (MANUAL) 7 % (22-44); MAN.DIFF COMMENT-IMPRESSION MANUAL DIFFERENTIAL; MONOCYTES % (MANUAL) 6 % (2-9); SEGMENTED NEUTROPHILS % 86 % (40-70)
[2017-09-14 07:55] LABS: PLATELET MORPHOLOGY COMMENT ADEQUATE
[2017-09-14] MEDS: FAMOTIDINE 20MG TAB 20 MG TAB PO SCH ×2 (10:18→20:47)
[2017-09-14] MEDS: RIFAXIMIN 550 MG TABLET PO SCH ×2 (10:18→20:48)
[2017-09-14] MEDS: FOLIC ACID 1 MG TABLET PO SCH (10:18)
[2017-09-14] MEDS: CEFTRIAXONE SODIUM 1 GM IVP SCH (10:18)
[2017-09-14] MEDS: THIAMINE HCL 100 MG TABLET PO SCH (10:18)
[2017-09-14] MEDS: LACTULOSE 20 GM/30 ML UDCUP PO SCH ×3 (10:18→20:48)
[2017-09-14] MEDS: FOLIC ACID/VITAMIN B COMP W-C 1 MG CAPSULE PO SCH (10:18)
[2017-09-14] MEDS: FUROSEMIDE 10 MG/ML 4ML VIAL IVP SCH ×2 (10:18→20:48)
[2017-09-14] MEDS: MAGNESIUM CHLORIDE 70 MG TABLET.SA PO SCH (10:19)
[2017-09-14] MEDS: MIDODRINE HCL 5 MG TABLET PO SCH ×3 (10:19→20:48)
[2017-09-14 11:00] VITALS: BP 106/63
[2017-09-14 16:00] VITALS: BP 101/61
[2017-09-14 22:22] VITALS: BP 92/58
[2017-09-15 00:46] VITALS: BP 101/65
[2017-09-15 04:44] VITALS: BP 98/70
[2017-09-15] MEDS: METRONIDAZOLE 500MG/100ML BAG 100 ML IV SCH (05:21)
[2017-09-15] MEDS: ONDANSETRON HCL MDV 20ML 2 MG/ML VIAL IV PRN (05:22)
[2017-09-15] MEDS: TRAMADOL HCL 50 MG TABLET PO PRN (05:22)
[2017-09-15 05:34] LABS: HEMATOCRIT 27.9 % (36-48); MEAN CORPUSCULAR HGB CONC 34.8 g/dL (32.0-36.0); MEAN CORPUSCULAR VOLUME 117.6 fL (79-99); PLATELET COUNT (AUTO) 141 K/uL (130-400); RED BLOOD CELL COUNT(AUTO) 2.37 MIL/uL (4.00-5.50); RED CELL DISTRIBUTION WIDTH 16.6 % (11.0-15.5); WHITE BLOOD COUNT (AUTO) 19.3 K/uL (4.8-10.8)
[2017-09-15 05:44] LABS: CREATININE 1.9 mg/dL (0.5-1.5); MAGNESIUM 1.7 mg/dL (1.80-2.40); PHOSPHORUS 3.7 mg/dL (2.5-4.9)
[2017-09-15 05:49] LABS: POTASSIUM 2.9 mmol/L (3.5-5.1)
[2017-09-15] MEDS: MAGNESIUM 2GM PREMIX 50ML 50 ML IV SCH (06:38)
[2017-09-15 07:00] VITALS: BP 94/61
[2017-09-15 08:25] LABS: BASOPHILS % (MANUAL) 1 % (0-2); EOSINOPHILS % (MANUAL) 1 % (1-6); LYMPHOCYTES % (MANUAL) 3 % (22-44); MAN.DIFF COMMENT-IMPRESSION MANUAL DIFFERENTIAL; MONOCYTES % (MANUAL) 7 % (2-9); PLATELET MORPHOLOGY COMMENT L; SEGMENTED NEUTROPHILS % 88 % (40-70)
[2017-09-15] MEDS: FAMOTIDINE 20MG TAB 20 MG TAB PO SCH (09:00)
[2017-09-15] MEDS: FOLIC ACID/VITAMIN B COMP W-C 1 MG CAPSULE PO SCH (09:00)
[2017-09-15] MEDS: MIDODRINE HCL 5 MG TABLET PO SCH ×2 (09:00→15:38)
[2017-09-15] MEDS: FOLIC ACID 1 MG TABLET PO SCH (09:00)
[2017-09-15] MEDS: THIAMINE HCL 100 MG TABLET PO SCH (09:00)
[2017-09-15] MEDS: RIFAXIMIN 550 MG TABLET PO SCH (09:00)
[2017-09-15] MEDS: MAGNESIUM CHLORIDE 70 MG TABLET.SA PO SCH (09:00)
[2017-09-15] MEDS: LACTULOSE 20 GM/30 ML UDCUP PO SCH ×2 (09:55→15:37)
[2017-09-15] MEDS: POTASSIUM CHLORIDE 20MEQ/100ML 100 ML IV PRN (09:57)
[2017-09-15] MEDS: LIDOCAINE HCL-MPF 1% 2ML VIAL IVP PRN (09:57)
[2017-09-15] MEDS: FUROSEMIDE 10 MG/ML 4ML VIAL IVP SCH (10:33)
[2017-09-15] MEDS ORDERED: ONDANSETRON HCL MDV 20ML 2 MG/ML VIAL IVP PRN (11:59)
[2017-09-15] MEDS ORDERED: TRAMADOL HCL 50 MG TABLET PO PRN (11:59)
[2017-09-15 12:00] VITALS: BP 100/65
[2017-09-15] MEDS ORDERED: DIPHENHYDRAMINE HCL 25 MG CAPSULE PO PRN (14:00)
[2017-09-15 17:10] VITALS: BP 107/70
== END 2017-09-15 18:47 | disposition hospice, home (50) | DRG 432 ==
LOC: EDH 08:13 → EDHIP 08:14 → 3DH 17:02
PROVIDERS: ADMIT Family Medicine; ATTEND Family Medicine
PROC: 0W9G30Z Drainage of Peritoneal Cavity with Drainage Device, Percutaneous Approach (ICD-10-PCS; principal; 2017-08-28)
PROC: 0W9G30Z Drainage of Peritoneal Cavity with Drainage Device, Percutaneous Approach (ICD-10-PCS; 2017-09-06)
DX: K70.31 Alcoholic cirrhosis of liver with ascites (principal); E43 Unspecified severe protein-calorie malnutrition; K70.40 Alcoholic hepatic failure without coma; K76.7 Hepatorenal syndrome; K65.2 Spontaneous bacterial peritonitis; N17.9 Acute kidney failure, unspecified; D68.4 Acquired coagulation factor deficiency; I95.89 Other hypotension; E83.42 Hypomagnesemia; N39.0 Urinary tract infection, site not specified; E87.1 Hypo-osmolality and hyponatremia; E83.51 Hypocalcemia; E86.9 Volume depletion, unspecified; B96.89 Other specified bacterial agents as the cause of diseases classified elsewhere; D63.1 Anemia in chronic kidney disease; E87.6 Hypokalemia; F10.20 Alcohol dependence, uncomplicated; F12.90 Cannabis use, unspecified, uncomplicated; G40.909 Epilepsy, unspecified, not intractable, without status epilepticus; G89.29 Other chronic pain; I12.9 Hypertensive chronic kidney disease with stage 1 through stage 4 chronic kidney disease, or unspecified chronic kidney disease; N18.9 Chronic kidney disease, unspecified; Z51.5 Encounter for palliative care; Z74.01 Bed confinement status; Z68.37 Body mass index [BMI] 37.0-37.9, adult; Z82.49 Family history of ischemic heart disease and other diseases of the circulatory system; Z82.3 Family history of stroke; Z82.5 Family history of asthma and other chronic lower respiratory diseases
CPT/HCPCS: 36415; 49083; 71045; 74176; 76700; 76705; 80048; 80053; 81001; 82140; 83540; 83550; 83690; 83735; 84100; 85025; 85027; 85610; 85730; 87071; 87205; 88313; 89051; 93005; A4218; A4344; J0696; J1200; J1940; J1956; J2270; J2405; J3430; J3475; J3480; J3490; P9046; Q0163; Q9963